=== PATIENT | female | born 1990 | race Caucasian/White ===

== ENCOUNTER 2017-11-10 21:03 | Inpatient (IN) | payer MEDICAID ==
[~2017-11-10 21:03] MED LIST: OXYTOCIN 30 UNITS/LR 500 ML BAG IV
[2017-11-10] MEDS ORDERED: MISOPROSTOL 200 MCG TAB PR (22:00)
[2017-11-10] MEDS ORDERED: CARBOPROST 250 MCG INJ IM (22:00)
[2017-11-10] MEDS ORDERED: OXYTOCIN 30 UNITS/LR 500 ML IV (22:00)
[2017-11-10] MEDS ORDERED: METHYLERGONOVINE 0.2 MG INJ IM (22:00)
[2017-11-10 22:41] LABS: ADD MAN DIFF? NO
[2017-11-10 22:44] LABS: WHITE BLOOD COUNT 6.2 10^3/ul (4.8-10.8)
[2017-11-10 22:44] LABS: BASOPHILS % 0.5 % (0.0-2.0); EOSINOPHILS # 0.1 10^3/ul (0.0-0.5); EOSINOPHILS % 1.4 % (0.0-7.0); HEMATOCRIT 30.5 % (37.0-47.0); HEMOGLOBIN 9.7 g/dl (12.0-16.0); LYMPHOCYTES # 1.8 10^3/ul (0.8-2.9); MEAN CORPUSCULAR HEMOGLOBIN 26.9 pg (29.0-33.0); MEAN CORPUSCULAR HGB CONC 31.8 g/dl (32.0-37.0); MEAN CORPUSCULAR VOLUME 84.5 fl (82.0-101.0); MEAN PLATELET VOLUME 11.1 fl (7.4-10.4); MONOCYTE # 0.5 10^3/ul (0.3-0.9); MONOCYTES % 7.7 % (0.0-11.0); NEUTROPHIL # 3.8 10^3/ul (1.6-7.5); NEUTROPHILS % 61.1 % (39.0-77.0); PLATELET COUNT 149 10^3/UL (140-415); RED BLOOD COUNT 3.61 10^6/ul (4.20-5.40); RED CELL DISTRIBUTION WIDTH 13.2 % (11.5-14.5)
[2017-11-10] MEDS: LACTATED RINGER'S 1,000 ML IV (23:02)
[2017-11-10 23:32] LABS: INR 1.01; PARTIAL THROMBOPLASTIN TIME 25.8 Sec (25.0-35.0); PROTIME 13.4 Sec (11.9-14.9)
[2017-11-10 23:33] LABS: HEPATITIS B SURFACE ANTIGEN NEGATIVE (NEGATIVE)
[2017-11-10] MEDS ORDERED: morphine SULFATE/PF (10 MG/10 ML) INJ (23:43)
[2017-11-10] MEDS ORDERED: PHENYLephrine (100 MCG/ML) 5ML SYG (23:43)
[2017-11-10] MEDS ORDERED: OXYTOCIN 10 UNIT INJ (23:43)
[2017-11-10] MEDS ORDERED: ONDANSETRON 4 MG INJ (23:43)
[2017-11-11] MEDS ORDERED: NALOXONE (0.4 MG/ML) INJ IV (02:00)
[2017-11-11] MEDS ORDERED: morphine 2 MG INJ IV (02:00)
[2017-11-11] MEDS ORDERED: ONDANSETRON 4 MG INJ IV (02:00)
[2017-11-11] MEDS ORDERED: DIPHENHYDRAMINE 50 MG INJ IV (02:00)
[2017-11-11] MEDS: OXYTOCIN 30 UNITS/LR 500 ML IV ×2 (02:15→10:09)
[2017-11-11] MEDS: CEFAZOLIN 2 GM/50 ML (PMX) 50 ML IVPB (02:24)
[2017-11-11] MEDS ORDERED: OXYTOCIN 30 UNITS/LR 500 ML IV (05:00)
[2017-11-11] MEDS ORDERED: LANOLIN 7 GM TUBE TOP (05:00)
[2017-11-11] MEDS ORDERED: CARBOPROST 250 MCG INJ IM (05:00)
[2017-11-11] MEDS ORDERED: MISOPROSTOL 200 MCG TAB PR (05:00)
[2017-11-11] MEDS ORDERED: METHYLERGONOVINE 0.2 MG INJ IM (05:00)
[2017-11-11 05:17] LABS: HIV 1&2 ANTIBODY NEGATIVE (NEGATIVE)
[2017-11-11] MEDS: KETOROLAC 30 MG INJ IV ×2 (08:23→16:01)
[2017-11-11 08:38] LABS: ADD MAN DIFF? NO
[2017-11-11 08:45] LABS: BASOPHILS % 0.4 % (0.0-2.0); EOSINOPHILS # 0.1 10^3/ul (0.0-0.5); EOSINOPHILS % 0.6 % (0.0-7.0); HEMATOCRIT 29.4 % (37.0-47.0); HEMOGLOBIN 9.2 g/dl (12.0-16.0); LYMPHOCYTES # 1.6 10^3/ul (0.8-2.9); LYMPHOCYTES % 20.1 % (15.0-51.0); MEAN CORPUSCULAR HEMOGLOBIN 26.7 pg (29.0-33.0); MEAN CORPUSCULAR HGB CONC 31.3 g/dl (32.0-37.0); MEAN CORPUSCULAR VOLUME 85.5 fl (82.0-101.0); MEAN PLATELET VOLUME 10.7 fl (7.4-10.4); MONOCYTE # 0.5 10^3/ul (0.3-0.9); MONOCYTES % 6.5 % (0.0-11.0); NEUTROPHIL # 5.8 10^3/ul (1.6-7.5); PLATELET COUNT 138 10^3/UL (140-415); RED BLOOD COUNT 3.44 10^6/ul (4.20-5.40); RED CELL DISTRIBUTION WIDTH 13.4 % (11.5-14.5)
[2017-11-11] MEDS: SENNA/DOCUSATE NA (8.6MG/50MG) TAB PO ×2 (10:05→21:00)
[2017-11-11] MEDS: LACTATED RINGER'S 1,000 ML IV ×2 (16:02→21:55)
[2017-11-11 18:35] LABS: RAPID PLASMA REAGIN NONREACTIVE (NR)
[2017-11-11] MEDS: OXYCODONE/ACETAMINOPHEN (5/325) TAB PO (23:16)
[2017-11-11] MEDS: IBUPROFEN 600 MG TAB PO (23:17)
[2017-11-12] MEDS: OXYCODONE/ACETAMINOPHEN (5/325) TAB PO ×2 (04:54→13:15)
[2017-11-12] MEDS: LACTATED RINGER'S 1,000 ML IV ×4 (05:55→21:55)
[2017-11-12] MEDS: IBUPROFEN 600 MG TAB PO ×3 (06:12→18:06)
[2017-11-12] MEDS: INFLUENZA VIRUS VACCINE 0.5 ML SYG IM* (09:57)
[2017-11-12] MEDS: SENNA/DOCUSATE NA (8.6MG/50MG) TAB PO ×2 (09:57→21:50)
[2017-11-13] MEDS: IBUPROFEN 600 MG TAB PO ×3 (00:01→11:58)
[2017-11-13] MEDS: OXYCODONE/ACETAMINOPHEN (5/325) TAB PO ×2 (00:41→07:45)
[2017-11-13] MEDS: LACTATED RINGER'S 1,000 ML IV (05:55)
[2017-11-13] MEDS: SENNA/DOCUSATE NA (8.6MG/50MG) TAB PO (09:28)
[2017-11-14] MEDS ORDERED: DIPHTH/TET/ACEL PERTUSS (ADULT) 0.5 ML VIAL IM* (09:00)
[2017-11-14 12:41] LABS: RUBELLA ANTIBODY - IGG 3.15 index; RUBELLA ANTIBODY - IGM <20.00 AU/mL
== END 2017-11-13 14:20 | disposition home or self-care (01) | DRG 766 ==
LOC: OBT 21:03 → L-D 11-11 03:17 → PP1 11-11 04:24 → OBT 21:52 → L-D 21:52
PROVIDERS: Obstetrics & Gynecology
PROC: 10D00Z1 Extraction of Products of Conception, Low, Open Approach (ICD-10-PCS; principal; 2017-11-10)
PROC: 3E033VJ Introduction of Other Hormone into Peripheral Vein, Percutaneous Approach (ICD-10-PCS; 2017-11-10)
DX: O34.211 Maternal care for low transverse scar from previous cesarean delivery (principal); Z37.0 Single live birth; Z3A.37 37 weeks gestation of pregnancy
CPT/HCPCS: 85025; 85610; 85730; 86592; 86703; 86762; 86850; 86900; 86901; 87340; 90686; 94760; 99464